=== PATIENT | male | born 1960 | race Caucasian/White ===

== ENCOUNTER 2024-06-20 08:19 | Outpatient (CLI) | payer MEDICARE, MEDICAID ==
[~2024-06-20 08:19] MED LIST: CARV25TA56 PO; LOSA-416 PO
[2024-06-20 08:54] LABS: ALBUMIN 3.4 G/DL (3.4-5.0); ANION GAP 6 (8-16); BLOOD UREA NITROGEN 17 MG/DL (7-18); BUN/CREATININE RATIO 14.7 (10.0-20.0); CALCIUM 8.3 MG/DL (8.5-10.1); CHLORIDE 106 MMOL/L (99-107); CREATININE 1.16 MG/DL (0.60-1.10); GLUCOSE 95 MG/DL (70-104); POTASSIUM 4.1 MMOL/L (3.5-5.1); SODIUM 136 MMOL/L (135-145); TOTAL CARBON DIOXIDE 24.2 MMOL/L (24-32); eGFR 63 ML/MIN
[2024-06-20] MEDS ORDERED: iohexol 300mg/ml 100ml inj. ONE (09:21)
== END 2024-06-20 23:59 | disposition home or self-care (01) ==
LOC: RAD 08:19
PROVIDERS: ATTEND Surgery
DX: C34.12 Malignant neoplasm of upper lobe, left bronchus or lung (principal); M43.8X4 Other specified deforming dorsopathies, thoracic region; J98.4 Other disorders of lung
CPT/HCPCS: 36415; 71260; 80048; Q9967